=== PATIENT | male | born 1985 | race American Indian/Alaskan Native ===

== ENCOUNTER 2017-02-15 00:57 | Emergency (ER) | payer SELFPAY ==
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
[2017-02-15] MEDS ORDERED: TYLENOL ONE (04:49)
[2017-02-15] MEDS ORDERED: TYLENOL PO ONE (04:49)
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
[2017-02-15] MEDS ORDERED: BOOSTRIX IM ONE (05:33)
[2017-02-15 06:52] VITALS: BP 149/98
== END 2017-02-15 07:13 | disposition home or self-care (01) ==
LOC: ED 00:57
DX: S80.211A Abrasion, right knee, initial encounter (principal); S60.511A Abrasion of right hand, initial encounter; M19.90 Unspecified osteoarthritis, unspecified site; F17.200 Nicotine dependence, unspecified, uncomplicated; V29.9XXA Motorcycle rider (driver) (passenger) injured in unspecified traffic accident, initial encounter; Y93.89 Activity, other specified; Y99.8 Other external cause status; Y92.89 Other specified places as the place of occurrence of the external cause
CPT/HCPCS: 90471; 90715

== ENCOUNTER 2019-08-17 01:36 | Emergency (ER) | payer SELFPAY ==
[2019-08-17] MEDS ORDERED: IPRATROPIUM/ALBUTEROL SULFATE 3 ML AMPUL.NEB IH ONE (03:38)
--- NOTE | 2019-08-17 07:48 | Emergency Department Report ---
<IRIS TENA - Last Filed: 08/17/19 07:43> ED Shortness of Breath HPI - General Chief Complaint: Dyspnea/Respdistress Stated Complaint: KAM Time Seen by Provider: 08/17/19 07:28 Source: patient Mode of arrival: Ambulatory Limitations: No Limitations - History of Present Illness Initial Comments: This is a 33-year-old -[place] male who presents to the emergency room with shortness of breath and cough for 1 day. Past medical history of asthma and current smoker. 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 Patient states he ran out of his albuterol inhaler several weeks ago. States only have asthma attacks when he is sick. He also states he is trying to stop smoking. He denies fever, chills, rhinorrhea, myalgia, headache, or weakness. MD Complaint: shortness of breath, cough, "asthma attack" Onset/Timin -: days(s) Improves With: nothing Worsens With: exertion, coughing Known History Of: asthma Context: recent URI Associated Symptoms: cough Treatments Prior to Arrival: none - Related Data Home Oxygen Therapy: No Previous Rx's Medication Instructions Recorded Last Taken Type Clindamycin [Clindamycin CAP] 450 mg PO Q8HR 5 Days capsule 02/15/17 Unknown Rx Albuterol INH(or & Nicu Only) 2 puff IH QID PRN #8.5 gram 08/17/19 Unknown Rx [ProAir HFA Inhaler] Prednisone [predniSONE 5 mg (6-Day 5 mg PO .TAPER #1 tab.ds.pk 08/17/19 Unknown Rx Pack, 21 Tabs)] Allergies Allergy/AdvReac Type Severity Reaction Status Date / Time No Known Allergies Allergy Verified 02/15/17 04:51 ED Review of Systems Constitutional: denies: chills, fever ENT: denies: ear pain, throat pain Respiratory: cough, shortness of breath, SOB with exertion. denies: wheezing Cardiovascular: denies: chest pain, palpitations Gastrointestinal: denies: abdominal pain, nausea, diarrhea Musculoskeletal: denies: back pain, joint swelling, arthralgia Skin: denies: rash, lesions Neurological: denies: headache, weakness, paresthesias Psychiatric: denies: anxiety, depression ED Past Medical Hx - Past Medical History Previous Medical History?: Yes Hx Arthritis: Yes Hx Asthma: Yes - Surgical History Past Surgical History?: No - Social History Smoking Status: Current Every Day Smoker Substance Use Type: None - Medications Home Medications: Home Medications Medication Instructions Recorded Confirmed Last Taken Type Clindamycin [Clindamycin CAP] 450 mg PO Q8HR 5 Days capsule 02/15/17 Unknown Rx Albuterol INH(or & Nicu Only) 2 puff IH QID PRN #8.5 gram 08/17/19 Unknown Rx [ProAir HFA Inhaler] Prednisone [predniSONE 5 mg (6-Day 5 mg PO .TAPER #1 tab.ds.pk 08/17/19 Unknown Rx Pack, 21 Tabs)] ED Physical Exam - General Limitations: No Limitations General appearance: alert, in no apparent distress - ENT ENT exam: Present: normal orophraynx, mucous membranes moist, TM's normal bilaterally, normal external ear exam, other (turbinates mildly congested with clear discharge) - Respiratory Respiratory exam: Present: normal lung sounds bilaterally. Absent: respiratory distress - Cardiovascular Cardiovascular Exam: Present: regular rate, normal rhythm. Absent: systolic murmur, diastolic murmur, rubs, gallop - GI/Abdominal GI/Abdominal exam: Present: soft, normal bowel sounds - Neurological Exam Neurological exam: Present: alert, oriented X3 - Psychiatric Psychiatric exam: Present: normal affect, normal mood - Skin Skin exam: Present: warm, dry, intact, normal color. Absent: rash ED Medical Decision Making - Medical Decision Making History of Asthma and current smoker. Patient examined by me and in no acute distress. Vitals stable. Given duoneb treatment prior to assessment. Lungs are clear throughout on evaluation. Asthma exacerbation, Start albuterol and prednisone taper. Discharged home stable. Follow up with a primary care. Return to work tomorrow. Patient discharged home stable. ED Disposition Clinical Impression: Shortness of breath Asthma exacerbation Qualifiers: Asthma severity: mild Asthma persistence: intermittent Qualified Code(s): J45.21 - Mild intermittent asthma with (acute) exacerbation Disposition: TO HOME OR SELFCARE Is pt being admited?: No Condition: Stable Instructions: Asthma (ED), How to Stop Smoking (ED) Additional Instructions: It is important to use inhaler or have active albuterol inhaler and avoiding asthma triggers. Complete full course of prednisone steroids as prescribed. Follow up with Primary Care Provider in 24-72 hours. Prescriptions: Prednisone [predniSONE 5 mg (6-Day Pack, 21 Tabs)] 5 mg PO .TAPER #1 tab.ds.pk Albuterol INH(or & Nicu Only) [ProAir HFA Inhaler] 2 puff IH QID PRN #8.5 gram PRN Reason: Shortness Of Breath Referrals: [facility] [Outside] - 3-[address] [facility] [Outside] - 3-5 Days [facility] [Outside] - 3-5 Days Forms: Work/School Release Form(ED) Time of Disposition: 07:51 <ANNI QUINTEROS P - Last Filed: 08/17/19 08:21> ED Review of Systems ROS: Stated complaint: KAM Other details as noted in HPI ED Course Vital Signs 08/17/19 08/17/19 01:42 07:56 Temperature 98.2 F Pulse Rate 90 84 Respiratory 16 18 Rate Blood Pressure 123/83 Blood Pressure 121/80 [Right] O2 Sat by Pulse 100 100 Oximetry ED Medical Decision Making - Medical Decision Making Attestation: Available for consultation Critical care attestation.: If time is entered above; I have spent that time in minutes in the direct care of this critically ill patient, excluding procedure time. ED Disposition Is pt being admited?: No
[2019-08-17 07:57] VITALS: BP 121/80
== END 2019-08-17 07:56 | disposition home or self-care (01) ==
LOC: ED 01:36
DX: J45.901 Unspecified asthma with (acute) exacerbation (principal); M19.90 Unspecified osteoarthritis, unspecified site; F17.200 Nicotine dependence, unspecified, uncomplicated; Z79.899 Other long term (current) drug therapy
CPT/HCPCS: 94640

== ENCOUNTER 2021-10-24 12:53 | Emergency (ER) | payer SELFPAY ==
[2021-10-24] MEDS ORDERED: levETIRAcetam 1000 MG/NS 0.75% 1,000 MG/100 ML BAG IV ONE (13:38)
[2021-10-24] MEDS ORDERED: SODIUM CHLORIDE 0.9% 1000 ML 1,000 ML IV ONE ×2 (13:51→15:12)
--- NOTE | 2021-10-24 13:56 | Emergency Department Report ---
HPI - General Chief Complaint: Seizure Time Seen by Provider: 10/24/21 13:36 - HPI HPI: Room 22 The patient is a 35-year-old male present with a chief complaint of seizure. Patient was witnessed having a generalized tonic-clonic seizure by his friend in the parking lot. The patient states he remembers driving to the parking lot to meet his friend and had gotten out of the car to speak to them with his next memory being him awakening in the back of an ambulance. Patient significant other is at bedside and states that she was told by the friend that the patient's body "tensed up" and the friend "the patient before he fell to the ground. EMS was called. Patient currently denies complaints. Patient denies previous history of seizures. Of note the patient and significant other states that the patient has been very busy over the past 2 weeks and has not had much sleep. ED Past Medical Hx - Past Medical History Previous Medical History?: Yes Hx Arthritis: Yes Hx Asthma: Yes - Surgical History Past Surgical History?: No - Family History Family history: no significant - Social History Smoking Status: Current Some Day Smoker (Black and milds) Substance Use Type: None (Denies illicit drug use), Alcohol (Rarely) - Medications Home Medications: Home Medications Medication Instructions Recorded Confirmed Last Taken Type Clindamycin [Clindamycin CAP] 450 mg PO Q8HR 5 Days capsule 02/15/17 Unknown Rx Albuterol Mdi (or & Nicu Only) 2 puff IH QID PRN #8.5 gram 08/17/19 Unknown Rx [ProAir HFA Inhaler] Prednisone [predniSONE 5 mg (6-Day 5 mg PO .TAPER #1 tab.ds.pk 08/17/19 Unknown Rx Pack, 21 Tabs)] levETIRAcetam [Keppra TAB] 500 mg PO BID #60 tablet 10/24/21 Unknown Rx ED Review of Systems ROS: Stated complaint: SEIZURE Other details as noted in HPI Constitutional: no symptoms reported Eyes: denies: eye pain ENT: denies: throat pain Respiratory: no symptoms reported Cardiovascular: denies: chest pain Endocrine: no symptoms reported Gastrointestinal: denies: abdominal pain Genitourinary: denies: dysuria Musculoskeletal: denies: back pain Neurological: denies: headache Physical Exam - Physical Exam Vital Signs: Vital Signs 10/24/21 10/24/21 12:56 13:12 Temperature 98.1 F Pulse Rate 126 H Respiratory 16 Rate Blood Pressure 166/88 [Left] O2 Sat by Pulse 98 96 Oximetry Physical Exam: GENERAL: The patient is well-developed well-nourished male lying on stretcher not appearing to be in acute distress. [] HEENT: Normocephalic. Atraumatic. Extraocular motions are intact. Patient has moist mucous membranes. NECK: Supple. No meningitic signs are noted. Trachea midline CHEST/LUNGS: Clear to auscultation. There is no respiratory distress noted. HEART/CARDIOVASCULAR: Regular. There is tachycardia. There is no gallop rub or murmur. ABDOMEN: Abdomen is soft, nontender. Patient has normal bowel sounds. There is no abdominal distention. SKIN: There is no rash. There is no edema. There is no diaphoresis. NEURO: The patient is awake, alert, and oriented. The patient is cooperative. The patient has no focal neurologic deficits. The patient has normal speech. C ranial nerves II through XII grossly intact. GCS 15 MUSCULOSKELETAL: There is no evidence of acute injury. ED Course Vital Signs 10/24/21 10/24/21 12:56 13:12 Temperature 98.1 F Pulse Rate 126 H Respiratory 16 Rate Blood Pressure 166/88 [Left] O2 Sat by Pulse 98 96 Oximetry ED Medical Decision Making - Lab Data Result diagrams: 10/24/21 14:07 10/24/21 14:07 Laboratory Tests 10/24/21 10/24/21 10/24/21 14:07 14:07 14:07 WBC 7.1 RBC 4.44 Hgb 14.3 Hct 42.6 MCV 96 H MCH 32 MCHC 34 RDW 13.6 Plt Count 207 Lymph % (Auto) 12.0 L Preston % (Auto) 7.9 H Eos % (Auto) 0.4 Baso % (Auto) 0.5 Lymph # (Auto) 0.8 L Preston # (Auto) 0.6 Eos # (Auto) 0.0 Baso # (Auto) 0.0 Seg Neutrophils % 79.2 H Seg Neutrophils # 5.6 Sodium 134 L Potassium 4.4 Chloride 96.6 L Carbon Dioxide 19 L Anion Gap 23 BUN 12 Creatinine 0.7 L Estimated GFR > 60 BUN/Creatinine Ratio 17 Glucose 100 Calcium 8.9 Magnesium 2.30 Total Creatine Kinase 1618 H TSH Free T4 Urine Opiates Screen Urine Methadone Screen Ur Barbiturates Screen Ur Phencyclidine Scrn Ur Amphetamines Screen U Benzodiazepines Scrn Urine Cocaine Screen U Marijuana (THC) Screen Plasma/Serum Alcohol < 0.01 10/24/21 10/24/21 14:07 Unknown WBC RBC Hgb Hct MCV MCH MCHC RDW Plt Count Lymph % (Auto) Preston % (Auto) Eos % (Auto) Baso % (Auto) Lymph # (Auto) Preston # (Auto) Eos # (Auto) Baso # (Auto) Seg Neutrophils % Seg Neutrophils # Sodium Potassium Chloride Carbon Dioxide Anion Gap BUN Creatinine Estimated GFR BUN/Creatinine Ratio Glucose Calcium Magnesium Total Creatine Kinase TSH 0.938 Free T4 1.08 Urine Opiates Screen Negative Urine Methadone Screen Negative Ur Barbiturates Screen Negative Ur Phencyclidine Scrn Negative Ur Amphetamines Screen Negative U Benzodiazepines Scrn Negative Urine Cocaine Screen Negative U Marijuana (THC) Screen Negative Plasma/Serum Alcohol - Radiology Data Radiology results: report reviewed (CT head), image reviewed (CT head) [place] [id number] Cat Scan Report Signed Patient: EDIE TENA MR #: [id number] : 1985 Acct:[id number] Age/Sex: 35 / M ADM Date: 10/24/21 Loc: ED Attending Dr: Ordering Physician: JOCY FINNEGAN MD Date of Service: 10/24/21 Procedure(s): CT head/brain wo con Accession Number(s): [id number] cc: JOCY FINNEGAN MD CT head without contrast INDICATION : Headache following seizures TECHNIQUE: Axial imaging performed from the skull apex through the skull base without the use of contrast. All CT examinations performed at this facility utilize dose modulation, iterative reconstruction or weight-based dosing, when appropriate, to reduce radiation dose to as low as reasonably achievable. COMPARISON: None FINDINGS: No acute intracranial hemorrhage or parenchymal abnormality. Ventricles are normal in size and appear symmetric. Soft tissues including the orbits appear normal. No acute osseous abnormality. Sinuses and mastoid air cells are clear. IMPRESSION: No acute abnormality. Signer Name: Elvis Arvizu MD Signed: 10/24/2021 2:37 PM Workstation Name: [id number] Transcribed By: Dictated By: Elvis Arvizu MD Electronically Authenticated By: Elvis Arvizu MD Signed Date/Time: 10/24/211436 DD/ 34 TD/TT: - Differential Diagnosis New onset seizure Critical care attestation.: If time is entered above; I have spent that time in minutes in the direct care of this critically ill patient, excluding procedure time. ED Disposition Clinical Impression: Seizure Disposition: HOME / SELF CARE / HOMELESS Is pt being admited?: No Does the pt Need Aspirin: No Condition: Stable Instructions: Epilepsy, [id number], Seizure, Adult, [id number] Additional Instructions: You should not drive a vehicle, operate heavy machinery or swim unattended until you are cleared by a neurologist. Return to the emergency department should you develop worsening symptoms, inability to tolerate food or liquids, high fever or any other concerns Prescriptions: levETIRAcetam [Keppra TAB] 500 mg PO BID #60 tablet Referrals: FATEMEH BAZAN MD [Staff Physician] - 3-5 Days Time of Disposition: 17:05
[2021-10-24 14:37] LABS: Basophils % (Auto) 0.5 % (0.0-1.8); Eosinophils % (Auto) 0.4 % (0.0-4.3); Hematocrit 42.6 % (35.5-45.6); Hemoglobin 14.3 gm/dl (11.8-15.2); Lymphocytes # (Auto) 0.8 K/mm3 (1.2-5.4); Mean Corpuscular HGB Conc 34 % (32-34); Mean Corpuscular Volume 96 fl (84-94); Monocytes # (Auto) 0.6 K/mm3 (0.0-0.8); Monocytes % (Auto) 7.9 % (0.0-7.3); Platelet Count 207 K/mm3 (140-440); Red Blood Count 4.44 M/mm3 (3.65-5.03); Red Cell Distribution Width 13.6 % (13.2-15.2)
--- NOTE | 2021-10-24 14:42 | Cat Scan Report ---
CT head without contrast INDICATION : Headache following seizures TECHNIQUE: Axial imaging performed from the skull apex through the skull base without the use of con trast. All CT examinations performed at this facility utilize dose modulation, iterative reconstruct ion or weight-based dosing, when appropriate, to reduce radiation dose to as low as reasonably achiev able. COMPARISON: None FINDINGS: No acute intracranial hemorrhage or parenchymal abnormality. Ventricles are normal in si ze and appear symmetric. Soft tissues including the orbits appear normal. No acute osseous abnorm ality. Sinuses and mastoid air cells are clear. IMPRESSION: No acute abnormality. Signer Name: Elvis Arvizu MD Signed: 10/24/2021 2:37 PM Workstation Name: [id number]
[2021-10-24 15:11] LABS: Blood Urea Nitrogen 12 mg/dL (9-20); Calcium 8.9 mg/dL (8.4-10.2); Hemolysis Index 17
[2021-10-24 15:12] LABS: BUN/Creatinine Ratio 17
[2021-10-24 15:25] LABS: Free T4 (Free Thyroxine) 1.08 ng/dL (0.76-1.46)
[2021-10-24 16:41] VITALS: BP 155/107
[2021-10-24 16:54] LABS: Amphetamine Screen,Urine Negative; Benzodiazepines Screen,Urine Negative; Cannabinoid Screen,Urine Negative; Cocaine Screen,Urine Negative; Methadone Screen,Urine Negative; Opiate Screen,Urine Negative
[2021-10-24] MEDS ORDERED: BUTALB/ACETAMINOPHEN/CAFFEINE TAB PO ONE (17:08)
== END 2021-10-24 17:33 | disposition home or self-care (01) ==
LOC: ED 12:53
DX: R56.9 Unspecified convulsions (principal); J45.909 Unspecified asthma, uncomplicated; M19.90 Unspecified osteoarthritis, unspecified site; F17.200 Nicotine dependence, unspecified, uncomplicated; Z72.89 Other problems related to lifestyle; Z79.899 Other long term (current) drug therapy
CPT/HCPCS: 36415; 70450; 80048; 80307; 82550; 83735; 84439; 84443; 85025; 96361; 96374; 99284; J1953; J7030; 80320; Q0162; G0480

== ENCOUNTER 2022-01-05 22:43 | Emergency (ER) | payer BC ==
[2022-01-05 23:21] VITALS: BP 160/114
[2022-01-06] MEDS ORDERED: levETIRAcetam 500 MG TAB PO ONE (08:30)
[2022-01-06] MEDS ORDERED: BUTALB/ACETAMINOPHEN/CAFFEINE TAB PO ONE (08:30)
--- NOTE | 2022-01-06 08:31 | Emergency Department Report ---
ED General Adult HPI - General Chief complaint: Headache Stated complaint: HEAD IN PAIN PUI?: No Time Seen by Provider: 01/06/22 08:10 Source: patient Mode of arrival: Ambulatory Limitations: No Limitations - History of Present Illness Initial comments: Mr. Monson is a 36-year-old male that comes to the emergency room with a he adache. This concerned him because he has a recent diagnosis of seizures and is out of his Keppra. He denies any seizures. He has been in the ER for over 8 hours in the waiting room at the time of my exam and has had no seizure activity. He is not postictal. He has not taken his Keppra for 2 days. He does follow with a neurologist and has had a recent MRI. -: Gradual, hour(s) Location: head Worsens with: none Associated Symptoms: denies other symptoms Treatments Prior to Arrival: none - Related Data Previous Rx's Medication Instructions Recorded Last Taken Type levETIRAcetam [Keppra TAB] 500 mg PO BID #60 tablet 01/06/22 Unknown Rx Allergies Allergy/AdvReac Type Severity Reaction Status Date / Time No Known Allergies Allergy Verified 10/24/21 13:00 ED Review of Systems ROS: Stated complaint: HEAD IN PAIN Other details as noted in HPI Comment: All other systems reviewed and negative ED Past Medical Hx - Past Medical History Previous Medical History?: Yes Hx Arthritis: Yes Hx Seizures: Yes Hx Asthma: Yes - Surgical History Past Surgical History?: No - Family History Family history: no significant - Social History Smoking Status: Current Every Day Smoker Substance Use Type: None - Medications Home Medications: Home Medications Medication Instructions Recorded Confirmed Last Taken Type levETIRAcetam [Keppra TAB] 500 mg PO BID #60 tablet 01/06/22 Unknown Rx ED Physical Exam - General Limitations: No Limitations General appearance: alert, in no apparent distress - Head Head exam: Present: atraumatic, normocephalic - Eye Eye exam: Present: normal appearance - ENT ENT exam: Present: mucous membranes moist - Neck Neck exam: Present: normal inspection - Respiratory Respiratory exam: Present: normal lung sounds bilaterally. Absent: respiratory distress - Cardiovascular Cardiovascular Exam: Present: regular rate, normal rhythm. Absent: systolic murmur, diastolic murmur, rubs, gallop - GI/Abdominal GI/Abdominal exam: Present: soft, normal bowel sounds - Rectal Rectal exam: Present: deferred - Extremities Exam Extremities exam: Present: normal inspection - Back Exam Back exam: Present: normal inspection - Neurological Exam Neurological exam: Present: alert, oriented X3 - Psychiatric Psychiatric exam: Present: normal affect, normal mood - Skin Skin exam: Present: warm, dry, intact, normal color. Absent: rash ED Course Vital Signs 01/05/22 01/06/22 23:04 08:57 Temperature 98.5 F 98.2 F Pulse Rate 112 H 88 Respiratory 18 Rate Blood Pressure 160/114 O2 Sat by Pulse 94 Oximetry ED Medical Decision Making - Medical Decision Making Vital Signs 01/05/22 01/06/22 23:04 08:57 Temperature 98.5 F 98.2 F Pulse Rate 112 H 88 Respiratory 18 Rate Blood Pressure 160/114 O2 Sat by Pulse 94 Oximetry Patient comes to the ER with a headache because he is out of his seizure medic abhay he is concerned that he may have a seizure. He has a new onset of seizures and is being worked up by neurology. He is supposed to be on Keppra twice daily but has run out. He denies any new head trauma or injury. He has no focal deficit. He has normal vital signs. He is ambulatory, nontoxic and [id number] on exam. Patient being discharged home with discharge plan of care including diet, activity medications and follow-up. He understands the importance of seeing his neurologist for his medication refills. We have discussed the use of illicit drugs alcohol and tobacco lowering seizure threshold. Although he denies these. Blood pressure was elevated initially on admission but the provider was retaken and it was 150/80. Patient will monitor his blood pressure to make sure it does not remain elevated On discharge patient ambulatory, taking p.o. and in no acute distress - Differential Diagnosis Med refill Critical care attestation.: If time is entered above; I have spent that time in minutes in the direct care of this critically ill patient, excluding procedure time. ED Disposition Clinical Impression: History of seizures, Noncompliance with medication regimen, Elevated blood pressure, situational Headache Qualifiers: Headache type: unspecified Disposition: HOME / SELF CARE / HOMELESS Is pt being admited?: No Does the pt Need Aspirin: No Condition: Stable Instructions: Hypertension (ED) Additional Instructions: follow up with neuro and pcp for ongoing care pcp referral below stay well hydrated with water avoid drugs or alcohol take keppra as instructed Prescriptions: levETIRAcetam [Keppra TAB] 500 mg PO BID #60 tablet Referrals: BRIAN WHITE MD [Primary Care Provider] - 3-5 Days Forms: Work/School Release Form(ED) Time of Disposition: 08:34
== END 2022-01-06 08:57 | disposition home or self-care (01) ==
LOC: ED 22:43
DX: R51.9 Headache, unspecified (principal); R56.9 Unspecified convulsions; I10 Essential (primary) hypertension; Z91.14 Patient's other noncompliance with medication regimen; J45.909 Unspecified asthma, uncomplicated; M19.90 Unspecified osteoarthritis, unspecified site; F17.290 Nicotine dependence, other tobacco product, uncomplicated
CPT/HCPCS: 99282